=== PATIENT | male | born 1940 | race Caucasian/White ===

== ENCOUNTER 2018-12-29 13:08 | Day surgery (SDC) | payer MEDICARE ==
[2018-12-29] MEDS ORDERED: Xylocaine-Mpf 2% 5 Ml Vial IJ ONE (13:09)
[2018-12-29] MEDS ORDERED: Depo-Medrol 40 MG/ML IM ONE (13:09)
[2018-12-29] MEDS ORDERED: DIPRIVAN 200 MG/20 ML IV ONE (14:30)
[2018-12-29] MEDS ORDERED: Ketamine HCl 50 MG/ML ONE (14:30)
[2018-12-29] MEDS ORDERED: Lactated Ringers 1,000 ML IV ONE (15:27)
--- NOTE | 2018-12-29 15:34 | XRAY ---
Indication: Bilateral L3-S1 MBB. Intraoperative fluoroscopy was provided for 20 seconds. Single digital spot image submitted for interpretation demonstrates posterior needle tips projecting over the expected course of the left and right L3-S1 nerve roots. Correlate with intraoperative findings/report.
--- NOTE | 2018-12-29 16:54 | XRAY ---
20 seconds fluoroscopy time in surgery for bilateral L3-S1 MBB.
== END 2018-12-29 14:55 | disposition home or self-care (01) ==
LOC: SDC 13:08 → SDC-PAIN 13:08
PROVIDERS: ATTEND Psychiatry & Neurology Pain Medicine
DX: M47.816 Spondylosis without myelopathy or radiculopathy, lumbar region (principal); I10 Essential (primary) hypertension; G47.30 Sleep apnea, unspecified; Z87.820 Personal history of traumatic brain injury; Z79.899 Other long term (current) drug therapy
CPT/HCPCS: 64493; 64494; 64495; 72020; 77002; J1030; J2704